=== PATIENT | female | born 1960 | race Caucasian/White ===

== ENCOUNTER 2017-05-01 09:50 | Day surgery (SDC) | payer BC ==
[~2017-05-01 09:50] MED LIST: Ciprofloxacin/Dexamethasone 0.3-0.1% Otic Susp 7.5 ML Bottle ONE; EPINEPHrine 1:1000 1 MG/ML SDV ONE
[2017-05-01] MEDS ORDERED: Lactated Ringers 1,000 ML IV SCH (10:30)
[2017-05-01] MEDS ORDERED: Ondansetron 4 MG/2 ML SDV ONE (11:14)
[2017-05-01] MEDS ORDERED: Propofol 200 MG/20 ML SDV ONE (11:14)
[2017-05-01] MEDS ORDERED: fentaNYL 100 MCG/2 ML SDV ONE (11:14)
[2017-05-01] MEDS ORDERED: Midazolam 1 MG/ML 2 ML SDV ONE (11:14)
--- NOTE | 2017-05-01 11:58 | PCM.PREANE ---
Preanesthetic Assessment - Procedure Proposed Procedure: tympanostomy with tube - Anesthesia/Transfusion/Family Hx Anesthesia History: Prior Anesthesia Without Reaction Family History of Anesthesia Reaction: No Transfusion History: No Prior Transfusion(s) Intubation History: Unknown - Review of Systems General: No Symptoms, Other (s/p bariatric surgery) Pulmonary: No Symptoms Cardiovascular: No Symptoms Gastrointestinal: No symptoms Neurological: Other (s/p spine surgery, lumbar) Other: Reports: None - Physical Assessment NPO Status Date: 04/30/17 NPO Status Time: 21:00 O2 Sat by Pulse Oximetry: 98 Respiratory Rate: 16 Vital Signs: Last Vital Signs Temp 99.0 F 05/01/17 10:00 Pulse 60 05/01/17 10:00 Resp 16 05/01/17 10:00 BP 140/100 H 05/01/17 10:00 Pulse Ox 98 05/01/17 10:00 Height: 5 ft 5 in Weight: 155 lb ASA Class: 3 Mental Status: Alert & Oriented x3 Airway Class: Mallampati = 1 Dentition: Reports: Normal Dentition Thyro-Mental Finger Breadths: 3 Mouth Opening Finger Breadths: 3 ROM/Head Extension: Full Lungs: Clear to auscultation, Normal respiratory effort Cardiovascular: Regular Rate, Regular Rhythm, No Murmurs Other: at bedside - Allergies Allergies/Adverse Reactions: Allergies Allergy/AdvReac Type Severity Reaction Status Date / Time No Known Allergies Allergy Verified 04/29/17 12:22 - Blood Blood Available: No Product(s) Available: None - Anesthesia Plan Pre-Op Medication Ordered: None - Acknowledgements Anesthesia Type Planned: General Anesthesia (LMA vs OET) Pt an Appropriate Candidate for the Planned Anesthesia: Yes Alternatives and Risks of Anesthesia Discussed w Pt/Guardian: Yes Pt/Guardian Understands and Agrees with Anesthesia Plan: Yes PreAnesthesia Questionnaire HEENT History: Reports: None Cardiovascular History: Reports: None Respiratory History: Reports: None Gastrointestinal History: Reports: Hiatal Hernia Other Gastrointestinal History: corrected with gastric bypass surgery Genitourinary History: Reports: None 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 Musculoskeletal History: Reports: Arthritis Other Musculoskeletal History: hx of fx left shoulder Neurological History: Reports: Concussion Psychiatric History: Reports: None Endocrine/Metabolic History: Reports: None Hematologic History: Reports: None Immunologic History: Reports: None Oncologic (Cancer) History: Reports: None Dermatologic History: Reports: None - Infectious Disease History Infectious Disease History: Reports: Herpes, Influenza - Past Surgical History Head Surgeries/Procedures: Reports: None HEENT Surgical History: Reports: LASIK Cardiovascular Surgical History: Reports: None Respiratory Surgical History: Reports: None GI Surgical History: Reports: Bariatric Procedure Female Surgical History: Reports: Hysterectomy Endocrine Surgical History: Reports: None Neurological Surgical History: Reports: Laminectomy, Spinal Fusion Other Neurological Surgeries/Procedures: 4 procedures at L5, last one was fusion Musculoskeletal Surgical History: Reports: Knee Replacement Other Musculoskeletal Surgeries/Procedures:: 4 back surg, 4 bilat knee surg ( total of 9) Oncologic Surgical History: Reports: None Dermatological Surgical History: Reports: None - SUBSTANCE USE Smoking Status *Q: Never Smoker Tobacco Use Within Last Twelve Months: Cigarettes Second Hand Smoke Exposure: No Days Per Week of Alcohol Use: 4 Number of Drinks Per Day: 1 Total Drinks Per Week: 4 Recreational Drug Use History: No - HOME MEDS Home Medications: Home Meds . [No Known Home Meds] 04/29/17 [History] - CURRENT (IN HOUSE) MEDS Current Meds: Current Medications Lactated Ringer's (Ringers, Lactated) 1,000 mls @ 125 mls/hr IV ASDIRECTED ODILON Last Admin: 05/01/17 10:15 Dose: 125 mls/hr Discontinued Medications Ciprofloxacin/Dexamethasone (Ciprodex Otic Susp) Confirm Administered Dose 7.5 ml .ROUTE .STK-MED ONE Stop: 05/01/17 07:30 Epinephrine HCl (Adrenalin 1:1000) Confirm Administered Dose 2 mg .ROUTE .STK- MED ONE Stop: 05/01/17 07:30 Fentanyl (Sublimaze) Confirm Administered Dose 100 mcg .ROUTE .STK-MED ONE Stop: 05/01/17 11:15 Midazolam HCl (Versed 1 Mg/Ml) Confirm Administered Dose 2 mg .ROUTE .STK-MED ONE Stop: 05/01/17 11:15 Ondansetron HCl (Zofran) Confirm Administered Dose 4 mg .ROUTE .STK-MED ONE Stop: 05/01/17 11:15 Propofol (Diprivan 20 Ml) Confirm Administered Dose 200 mg .ROUTE .STK-MED ONE Stop: 05/01/17 11:15
--- NOTE | 2017-05-01 12:15 | PCM.HPR ---
H & P Addendum review - H & P Addendum Review Date of Original H & P: 04/19/17 Date Reviewed: 05/01/17 Time Reviewed: 11:55 Patient was examined: Changes (Ptient feels that the ear pressure has been better over the past 2 days; on otoscopy - the ME seems to be clearing with minimal fluid; I discussed that if ontra operatively the middle ear is dry - will not place a tympnanostomy tube; she agreed)
[2017-05-01] MEDS ORDERED: Ketorolac 30 MG/ML SDV ONE (12:36)
[2017-05-01 13:37] VITALS: BP 134/82
--- NOTE | 2017-05-01 14:11 | PCM48HPAN ---
Post Anesthesia Note - EVALUATION WITHIN 48HRS OF ANESTHETIC Vital Signs in Normal Range: Yes Patient Participated in Evaluation: Yes Respiratory Function Stable: Yes Airway Patent: Yes Cardiovascular Function Stable: Yes Hydration Status Stable: Yes Pain Control Satisfactory: Yes Nausea and Vomiting Control Satisfactory: Yes Mental Status Recovered: Yes
--- NOTE | 2017-05-01 14:11 | PCM.POSTAN ---
POST ANESTHESIA ASSESSMENT - MENTAL STATUS Mental Status: alert, oriented - RESPIRATORY Respiratory Status: respiratory rate WNL, airway patent, O2 saturation stable - CARDIOVASCULAR CV Status: pulse rate WNL, blood pressure stable - GASTROINTESTINAL GI Status: no symptoms - POST OP HYDRATION Hydration Status: adequate & stable
--- NOTE | 2017-05-01 16:11 | PCM.OPNOTE ---
- General Post-Op/Procedure Note Condition: Good Free Text/Narrative:: Intake & Output 05/01/17 05/01/17 05/01/17 06:59 14:59 22:59 Intake Total 1900 Balance 1900 Diagnosis: Right otitis media with effusion, Right mixed hearing loss Procedure: Right Myringotomy with Tympanostomy tube Surgeon : Eli Reid MD Anesthesia: GA Anesthesiologist: Dr Ely Date of procedure:05/01/2017 Indications : She presented to my office with a history of right sided ear ache and hearing loss over 2-3 days to almost a complete loss of hearing. When seen by me - she had Right middle ear effusion ; office nasopharyngoscopy was normal. She underwent an MRI of IAC and skull base - no mass lesion in brain / skull base except fluid in middle ear and possible granulations in the mastoid. She was very nervous and stressed about the hearing loss. An audiogram revealed a severe mixed hearing loss on the right side with predominantly a conductive element. Various management options were discussed with her - she was very keen on undergoing a tympanostomy tube to relieve the conductive element and was listed for the procedure today. Findings : Minimal serous fluid in the middle ear Operation Details: An informed consent for the procedure was obtained. A time out was performed and the patient was brought back to the operating room and laid supine on the operating room table. Anesthesia was administered with a laryngeal mask airway. The right ear was addressed. Cerumen was cleared from the external auditory canal. An anterior inferior myringotomy incision was made in the pars tensa. Findings are as described above. An Cifuentes tympanostomy tube was placed with an alligator forceps. Ciprodex ear drops were instilled. A cotton wool wall was placed in the milad. This concluded the procedure and the patient was handed over to anestheisia for recovery. Specimens: none IV fluids: 600 ml Blood products: nil Disposition: PACU for recovery Follow up: In 1 week.
== END 2017-05-01 13:52 | disposition home or self-care (01) ==
LOC: MW.SDS 09:50
PROVIDERS: ATTEND Otolaryngology
PROC: 099500Z Drainage of Right Middle Ear with Drainage Device, Open Approach (ICD-10-PCS; principal; 2017-05-01)
DX: H65.91 Unspecified nonsuppurative otitis media, right ear (principal); H90.71 Mixed conductive and sensorineural hearing loss, unilateral, right ear, with unrestricted hearing on the contralateral side; M19.90 Unspecified osteoarthritis, unspecified site; Z90.710 Acquired absence of both cervix and uterus; Z90.79 Acquired absence of other genital organ(s); Z98.890 Other specified postprocedural states; Z96.659 Presence of unspecified artificial knee joint; Z98.1 Arthrodesis status
CPT/HCPCS: 69436; A9270; J0171; J1885; J2250; J2405; J3010; J7120; 00126; J2704

== ENCOUNTER 2017-05-21 12:08 | Emergency (ER) | payer BC ==
--- NOTE | 2017-05-21 12:41 | EDM.PDOC ---
ED HPI GENERAL MEDICAL PROBLEM - General Chief Complaint: ENT Problem Stated Complaint: EAR PAIN Time Seen by Provider: 05/21/17 12:12 Source of Information: Reports: Patient History Limitations: Reports: No Limitations - History of Present Illness INITIAL COMMENTS - FREE TEXT/NARRATIVE: The patient presents reporting right ear pressure and pain. On May 01, 2017 she had a PE tube placed by Dr. Reid for what sounds like a chronic serous otitis media. She had to have the tube irrigated once due to obstruction. She had a CT of the head which was negative for mastoiditis. She had sinus endoscopy which was clear. She had a dental exam 1 month ago without reported problems. She states that she had drainage from the right ear for a number of days after the tympanostomy but subsequently she has had no drainage. She did have a massage therapist do some release procedures as well. She talked to Dr. Reid a couple of days ago by phone and was told to take Tylenol or Motrin but the patient states they do not palliate the pressure pain. She denies tinnitus , headache, nosebleeds, visual problems. right ear Pain Score (Numeric/FACES): 6 - Related Data Allergies Allergy/AdvReac Type Severity Reaction Status Date / Time No Known Allergies Allergy Verified 05/21/17 12:10 Home Meds: Home Meds Prednisone [IMW: predniSONE] 40 mg PO WITHBREAKFAST #10 tab 05/21/17 [Rx] Past Medical History - Past Health History Medical/Surgical History: Denies Medical/Surgical History HEENT History: Reports: None Cardiovascular History: Reports: None Respiratory History: Reports: None Gastrointestinal History: Reports: Hiatal Hernia Other Gastrointestinal History: corrected with gastric bypass surgery Genitourinary History: Reports: None 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 Musculoskeletal History: Reports: Arthritis, Back Pain, Chronic, Fracture Other Musculoskeletal History: hx of fx left shoulder Neurological History: Reports: Concussion Psychiatric History: Reports: None Endocrine/Metabolic History: Reports: None Hematologic History: Reports: None Immunologic History: Reports: None Oncologic (Cancer) History: Reports: None Dermatologic History: Reports: None - Infectious Disease History Infectious Disease History: Reports: Herpes, Influenza - Past Surgical History Head Surgeries/Procedures: Reports: None HEENT Surgical History: Reports: LASIK, Myringotomy w Tube(s) Cardiovascular Surgical History: Reports: None Respiratory Surgical History: Reports: None GI Surgical History: Reports: Bariatric Procedure Female Surgical History: Reports: Breast Reduction, Hysterectomy, Oophorectomy Endocrine Surgical History: Reports: None Neurological Surgical History: Reports: Laminectomy, Spinal Fusion Other Neurological Surgeries/Procedures: 4 procedures at L5, last one was fusion Musculoskeletal Surgical History: Reports: Arthroscopic Knee, Knee Replacement Other Musculoskeletal Surgeries/Procedures:: 4 arthroscopies on each knee due to ACL, left TKA Oncologic Surgical History: Reports: None Dermatological Surgical History: Reports: None Social & Family History - Family History Family Medical History: Noncontributory - Tobacco Use Smoking Status *Q: Never Smoker Used Tobacco, but Quit: Yes Month Tobacco Last Used: 20 yrs Second Hand Smoke Exposure: No - Caffeine Use Caffeine Use: Reports: Tea - Alcohol Use Days Per Week of Alcohol Use: 4 Number of Drinks Per Day: 1 Total Drinks Per Week: 4 - Recreational Drug Use Recreational Drug Use: No Drug Use in Last 12 Months: No ED ROS ENT - Review of Systems Review Of Systems: ROS reveals no pertinent complaints other than HPI. ED EXAM, ENT - Physical Exam Exam: See Below Exam Limited By: No Limitations General Appearance: Alert, Mild Distress (due to pain) Ears: Normal External Exam, Normal TMs (left), Other (PE tube in place in right TM without obvious obstruction. TM without erythma or bulge. Canal dry) Nose: Normal Inspection Mouth/Throat: Normal Inspection, Normal Teeth (in good repair) Head: Atraumatic, Normocephalic Neck: Normal Inspection, Other (no swelling or tenderness over the mastoid). No : Lymphadenopathy (L), Lymphadenopathy (R) Respiratory/Chest: No Respiratory Distress, Lungs Clear, Normal Breath Sounds Cardiovascular: Normal Peripheral Pulses, Regular Rate, Rhythm, No Murmur GI/Abdominal: Soft Extremities: Normal Inspection Neurological: Alert, Oriented Psychiatric: Normal Affect, Normal Mood Skin: Warm, Dry, Intact, Normal Color, No Rash Lymphatic: No Adenopathy Course - Vital Signs Last Recorded V/S: Last Vital Signs Temp 36.6 C 05/21/17 12:10 Pulse 99 05/21/17 12:10 Resp 16 05/21/17 12:10 BP 160/95 H 05/21/17 12:10 Pulse Ox 99 05/21/17 12:10 - Re-Assessments/Exams Free Text/Narrative Re-Assessment/Exam: 05/21/17 12:[address] Eli Reid, ENT. Dr. Reid who is aware of the patient's current complaints. She will call the patient and move up her appointment. In the meantime we will try a short course of oral prednisone. Departure - Departure Time of Disposition: 12:45 Disposition: Home, Self-Care 01 Condition: Good Clinical Impression: Otalgia of right ear - Discharge Information Referrals: Eli Reid MD [Physician] - Forms: ED Department Discharge Additional Instructions: 1. Dr. Reid's office will call to move up your appointment previously scheduled for next week 2. Prednisone daily for 5 days 3. Tramadol every 4 hours as needed for pain.
== END 2017-05-21 13:00 | disposition home or self-care (01) ==
LOC: MW.ED 12:08
CPT/HCPCS: 99282; 99283

== ENCOUNTER 2017-07-07 06:34 | Emergency (ER) | payer BC ==
[2017-07-07] MEDS ORDERED: Sodium Chloride 0.9% 10 ML Syringe FLUSH PRN (06:54)
[2017-07-07] MEDS ORDERED: Sodium Chloride 0.9% 2.5 ML Syringe FLUSH PRN (06:54)
[2017-07-07] MEDS ORDERED: Ondansetron 4 MG/2 ML SDV IVPUSH ONE (07:34)
[2017-07-07] MEDS ORDERED: Atropine/Diphenoxylate 0.025-2.5 MG Tab PO ONE (07:37)
--- NOTE | 2017-07-07 07:44 | EDM.PDOC ---
ED HPI GENERAL MEDICAL PROBLEM - General Chief Complaint: Gastrointestinal Problem Stated Complaint: STOMACH PAINS Time Seen by Provider: 07/07/17 09:30 Source of Information: Reports: Patient - History of Present Illness INITIAL COMMENTS - FREE TEXT/NARRATIVE: HISTORY AND PHYSICAL: History of present illness: Patient presents with abdominal cramps and diarrhea after eating dinner last night she had blackened fish, since midnight she states she has had up to 20 loose stools. She states this has happened in the past about a year ago requiring fluid fluid bolus and an antispasmodic which relieved her symptoms. Essentially today she is having abdominal cramping, no fever vomiting chills sweats no chest pain shortness breath headache dizziness palpitation no urine symptoms Patient has not had a loose stool since being here in the emergency room hence no stool for culture or testing History of gastric bypass Review of systems: As per history of present illness and below otherwise all systems reviewed and negative. Past medical history: As per history of present illness and as reviewed below otherwise noncontributory. Surgical history: As per history of present illness and as reviewed below otherwise noncontributory. Social history: No reported history of drug or alcohol abuse. Family history: As per history of present illness and as reviewed below otherwise noncontributory. Physical exam: HEENT: Atraumatic, normocephalic, pupils reactive, negative for conjunctival pallor or scleral icterus, mucous membranes moist, throat clear, neck supple, nontender, trachea midline. Lungs: Clear to auscultation, breath sounds equal bilaterally, chest nontender. Heart: S1S2, regular, negative for clicks, rubs, or JVD. Abdomen: Soft, nondistended, nontender. Negative for masses or hepatosplenomegaly. Negative for costovertebral tenderness. Pelvis: Stable nontender. Genitourinary: Deferred. Rectal: Deferred. Extremities: Atraumatic, negative for cords or calf pain. Neurovascular unremarkable. Neuro: Awake, alert, oriented. Cranial nerves II through XII unremarkable. Cerebellum unremarkable. Motor and sensory unremarkable throughout. Exam nonfocal. Diagnostics: []Abdomen flat and upright No stool sample for testing Therapeutics: []Normal saline bolus Zofran 8 mg IV Lomotil 1 dose Impression: []Diarrhea/dumping syndrome Definitive disposition and diagnosis as appropriate pending reevaluation and review of above. abdomen Pain Score (Numeric/FACES): 7 - Related Data Allergies Allergy/AdvReac Type Severity Reaction Status Date / Time No Known Allergies Allergy Verified 07/07/17 06:37 Home Meds: Home Meds Prednisone [IMW: predniSONE] 40 mg PO WITHBREAKFAST #10 tab 05/21/17 [Rx] Past Medical History - Past Health History Medical/Surgical History: Denies Medical/Surgical History HEENT History: Reports: None Cardiovascular History: Reports: None Respiratory History: Reports: None Gastrointestinal History: Reports: Hiatal Hernia, Other (See Below) Other Gastrointestinal History: corrected with gastric bypass surgery; diarrhea Genitourinary History: Reports: None 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 Musculoskeletal History: Reports: Arthritis, Back Pain, Chronic, Fracture Other Musculoskeletal History: hx of fx left shoulder Neurological History: Reports: Concussion Psychiatric History: Reports: None Endocrine/Metabolic History: Reports: None Hematologic History: Reports: None Immunologic History: Reports: None Oncologic (Cancer) History: Reports: None Dermatologic History: Reports: None - Infectious Disease History Infectious Disease History: Reports: Herpes, Influenza - Past Surgical History Head Surgeries/Procedures: Reports: None HEENT Surgical History: Reports: LASIK, Myringotomy w Tube(s) Cardiovascular Surgical History: Reports: None Respiratory Surgical History: Reports: None GI Surgical History: Reports: Bariatric Procedure Female Surgical History: Reports: Breast Reduction, Hysterectomy, Oophorectomy Endocrine Surgical History: Reports: None Neurological Surgical History: Reports: Laminectomy, Spinal Fusion Other Neurological Surgeries/Procedures: 4 procedures at L5, last one was fusion Musculoskeletal Surgical History: Reports: Arthroscopic Knee, Knee Replacement Other Musculoskeletal Surgeries/Procedures:: 4 arthroscopies on each knee due to ACL, left TKA Oncologic Surgical History: Reports: None Dermatological Surgical History: Reports: None Social & Family History - Family History Family Medical History: Noncontributory - Tobacco Use Smoking Status *Q: Never Smoker Used Tobacco, but Quit: Yes Month Tobacco Last Used: 20 yrs Second Hand Smoke Exposure: No - Caffeine Use Caffeine Use: Reports: Tea - Alcohol Use Days Per Week of Alcohol Use: 4 Number of Drinks Per Day: 1 Total Drinks Per Week: 4 - Recreational Drug Use Recreational Drug Use: No Drug Use in Last 12 Months: No ED ROS GENERAL - Review of Systems Review Of Systems: ROS reveals no pertinent complaints other than HPI. ED EXAM, GENERAL - Physical Exam Exam: See Below Course - Vital Signs Last Recorded V/S: Last Vital Signs Temp 36.1 C 07/07/17 07:30 Pulse 70 07/07/17 07:30 Resp 18 07/07/17 07:30 BP 139/85 07/07/17 07:30 Pulse Ox 97 07/07/17 07:30 - Orders/Labs/Meds Orders: Active Orders 24 hr Category Date Time Status Abdomen 2V AP Flat Upright [CR] Stat Exams 07/07/17 07:37 Taken Sodium Chloride 0.9% [Saline Flush] Med 07/07/17 06:54 Active 10 ml FLUSH ASDIRECTED PRN Sodium Chloride 0.9% [Saline Flush] Med 07/07/17 06:54 Active 2.5 ml FLUSH ASDIRECTED PRN Saline Lock Insert [OM.PC] Stat Oth 07/07/17 06:54 Ordered Medication Orders Sodium Chloride (Saline Flush) 10 ml FLUSH ASDIRECTED PRN PRN Reason: Keep Vein Open Last Admin: 07/07/17 07:59 Dose: 10 ml Sodium Chloride (Saline Flush) 2.5 ml FLUSH ASDIRECTED PRN PRN Reason: Keep Vein Open Last Admin: 07/07/17 07:59 Dose: 2.5 ml Labs: Laboratory Tests 07/07/17 07/07/17 07/07/17 Range/Units 06:45 06:45 06:45 WBC 7.31 (4.0-11.0) K/uL RBC 4.76 (4.30-5.90) M/uL Hgb 12.9 (12.0-16.0) g/dL Hct 39.8 (36.0-46.0) % MCV 83.6 (80.0-98.0) fL MCH 27.1 (27.0-32.0) pg MCHC 32.4 (31.0-37.0) g/dL RDW Std Deviation 46.0 (28.0-62.0) fl RDW Coeff of Maximiliano 15 (11.0-15.0) % Plt Count 307 (150-400) K/uL MPV 9.70 (7.40-12.00) fL Neut % (Auto) 68.4 (48.0-80.0) % Lymph % (Auto) 19.3 (16.0-40.0) % [place] % (Auto) 10.0 (0.0-15.0) % Eos % (Auto) 1.8 (0.0-7.0) % Baso % (Auto) 0.5 (0.0-1.5) % Neut # (Auto) 5.0 (1.4-5.7) K/uL Lymph # (Auto) 1.4 (0.6-2.4) K/uL [place] # (Auto) 0.7 (0.0-0.8) K/uL Eos # (Auto) 0.1 (0.0-0.7) K/uL Baso # (Auto) 0.0 (0.0-0.1) K/uL Nucleated RBC % 0.0 /100WBC Nucleated RBCs # 0 K/uL Sodium 141 (136-146) mmol/L Potassium 4.1 (3.5-5.1) mmol/L Chloride 111 H (98-110) mmol/L Carbon Dioxide 20 L (21-31) mmol/L BUN 19 (6.0-23.0) mg/dL Creatinine 1.0 (0.6-1.5) mg/dL Est Cr Clr Drug Dosing 55.18 mL/min Estimated GFR (MDRD) 56.9 ml/min Glucose 91 (60-110) mg/dL Calcium 9.5 (8.8-10.8) mg/dL Total Bilirubin 0.7 (0.1-1.5) mg/dL AST 32 (5-40) IU/L ALT 21 (8-54) IU/L Alkaline Phosphatase 97 (40-150) Total Protein 7.6 (6.0-8.0) g/dL Albumin 4.3 (3.5-5.0) g/dL Globulin 3.3 (2.0-3.5) g/dL Albumin/Globulin Ratio 1.3 (1.3-2.8) Amylase 101 H (10-90) U/L Lipase 29 (7-80) U/L Meds: Medications Generic Name Dose Route Start Last Admin Trade Name Freq PRN Reason Stop Dose Admin Sodium Chloride 10 ml 07/07/17 06:54 07/07/17 07:59 Saline Flush FLUSH 10 ml ASDIRECTED PRN Administration Keep Vein Open Sodium Chloride 2.5 ml 08/27/17 06:54 07/07/17 07:59 Saline Flush FLUSH 2.5 ml ASDIRECTED PRN Administration Keep Vein Open Discontinued Medications Generic Name Dose Route Start Last Admin Trade Name Silvano PRN Reason Stop Dose Admin Diphenoxylate HCl/Atropine 1 tab 07/07/17 07:37 07/07/17 07:43 Lomotil 0.025-2.5 Mg PO 07/07/17 07:38 1 tab ONETIME ONE Administration Sodium Chloride 1,000 mls @ 999 mls/hr 07/07/17 07:47 07/07/17 07:59 Normal Saline IV 07/07/17 08:47 999 mls/hr STAT ONE Administration Ondansetron HCl 8 mg 07/07/17 07:34 07/07/17 07:43 Zofran IVPUSH 07/07/17 07:35 8 mg ONETIME ONE Administration Departure - Departure Time of Disposition: 09:29 Disposition: Home, Self-Care 01 Condition: Good Clinical Impression: Diarrhea - Discharge Information Referrals: Taylor Parry DO [Primary Care Provider] - Forms: ED Department Discharge Additional Instructions: Clear liquids as discussed Bread/bananas advance diet slowly Return if symptoms persist or worsen Follow-up with primary care in 2 weeks The following information is given to patients seen in the emergency department who are being discharged to home. This information is to outline your options for follow-up care. We provide all patients seen in our emergency department with a follow-up referral. The need for follow-up, as well as the timing and circumstances, are variable depending upon the specifics of your emergency department visit. If you don't have a primary care physician on staff, we will provide you with a referral. We always advise you to contact your personal physician following an emergency department visit to inform them of the circumstance of the visit and for follow-up with them and/or the need for any referrals to a consulting specialist. The emergency department will also refer you to a specialist when appropriate. This referral assures that you have the opportunity for follow-up care with a specialist. All of these measure are taken in an effort to provide you with optimal care, which includes your follow-up. Under all circumstances we always encourage you to contact your private physician who remains a resource for coordinating your care. When calling for follow-up care, please make the office aware that this follow-up is from your recent emergency room visit. If for any reason you are refused follow-up, please contact the [facility] emergency department at and asked to speak to the emergency department charge nurse. - My Orders Last 24 Hours: My Active Orders 07/07/17 07:37 Abdomen 2V AP Flat Upright [CR] Stat - Assessment/Plan Last 24 Hours: My Active Orders 07/07/17 07:37 Abdomen 2V AP Flat Upright [CR] Stat
[2017-07-07] MEDS ORDERED: Sodium Chloride 0.9% 1,000 ML IV ONE (07:47)
[2017-07-07 09:46] VITALS: BP 129/77
--- NOTE | 2017-07-08 13:19 | CR ---
EXAM DATE: 07/07/17 PATIENT'S AGE: 56 Patient: JULISA BOLAÑOS Facility: [place], [place] Site . Site : 1960 Study: XRay Abdomen [id number]/27/2017 8:14:42 AM Ordering Physician: Doctor Nuñez Final Report: HISTORY: Abdominal pain. Technique: Supine and upright views the abdomen. Comparison: Radiographs 04/13/2016. Findings: No free intraperitoneal gas. There is gas in nondilated small bowel and colon. Surgical staple lines in the left upper quadrant. Surgical clips in the left mid abdomen. Post lower lumbar fusion. No pathologic calcifications. Impression: No acute findings. No dilated bowel or free intraperitoneal gas. Dictated by Nikita Newman MD @ Jul 07 2017 8:20AM (Electronic Signature) Report Signed by Proxy. MARY JO
== END 2017-07-07 09:43 | disposition home or self-care (01) ==
LOC: MW.ED 06:34
DX: K91.1 Postgastric surgery syndromes (principal); M19.90 Unspecified osteoarthritis, unspecified site; Z96.22 Myringotomy tube(s) status; Z90.710 Acquired absence of both cervix and uterus
CPT/HCPCS: 74020; 80053; 82150; 83690; 85025; 96361; 96374; 99284; A9270; J2405; J7040; 99282

== ENCOUNTER 2017-10-02 08:21 | Day surgery (SDC) | payer BC ==
[~2017-10-02 08:21] MED LIST changes: -EPINEPHrine 1:1000 1 MG/ML SDV ONE; +Lactated Ringers 1,000 ML IV SCH; +Sodium Chloride 0.9% 10 ML Syringe FLUSH PRN; +Sodium Chloride 0.9% 2.5 ML Syringe FLUSH PRN
--- NOTE | 2017-10-02 09:06 | PCM.PREANE ---
Preanesthetic Assessment - Anesthesia/Transfusion/Family Hx Anesthesia History: Prior Anesthesia Without Reaction Transfusion History: No Prior Transfusion(s) Intubation History: Unknown - Review of Systems General: Other (2 cold sores under nose that pt states are healing) Pulmonary: No Symptoms Cardiovascular: No Symptoms Gastrointestinal: No Symptoms Neurological: No Symptoms Other: Reports: None - Physical Assessment NPO Status Date: 10/01/17 NPO Status Time: 20:00 O2 Sat by Pulse Oximetry: 98 Respiratory Rate: 16 Vital Signs: Last Vital Signs Temp 97.5 F 10/02/17 08:48 Pulse 76 10/02/17 08:48 Resp 16 10/02/17 08:48 BP 120/83 10/02/17 08:48 Pulse Ox 98 10/02/17 08:48 Height: 5 ft 4 in Weight: 153 lb ASA Class: 2 Mental Status: Alert & Oriented x3 Airway Class: Mallampati = 1 Dentition: Reports: Normal Dentition, [place](s) Thyro-Mental Finger Breadths: 3 Mouth Opening Finger Breadths: 3 ROM/Head Extension: Full Lungs: Clear to Auscultation, Normal Respiratory Effort Cardiovascular: Regular Rate, Regular Rhythm - Allergies Allergies/Adverse Reactions: Allergies Allergy/AdvReac Type Severity Reaction Status Date / Time No Known Allergies Allergy Verified 09/30/17 10:32 - Blood Blood Available: No Product(s) Available: None - Anesthesia Plan Free Text/Narrative:: GETA with LMA - Acknowledgements Anesthesia Type Planned: General Anesthesia Pt an Appropriate Candidate for the Planned Anesthesia: Yes Alternatives and Risks of Anesthesia Discussed w Pt/Guardian: Yes Pt/Guardian Understands and Agrees with Anesthesia Plan: Yes PreAnesthesia Questionnaire - Past Health History Medical/Surgical History: Denies Medical/Surgical History HEENT History: Reports: Hard of Hearing Other HEENT History: has hearing aide right ear Cardiovascular History: Reports: None Respiratory History: Reports: None Gastrointestinal History: Reports: Hiatal Hernia, Other (See Below) Other Gastrointestinal History: corrected with gastric bypass surgery; diarrhea Genitourinary History: Reports: None [employer] History: Reports: None Musculoskeletal History: Reports: Arthritis, Back Pain, Chronic, Fracture Other Musculoskeletal History: hx of fx left shoulder Neurological History: Reports: Concussion Psychiatric History: Reports: Anxiety Endocrine/Metabolic History: Reports: None Hematologic History: Reports: None Immunologic History: Reports: None Oncologic (Cancer) History: Reports: None Dermatologic History: Reports: None - Infectious Disease History Infectious Disease History: Reports: Herpes, Influenza - Past Surgical History Head Surgeries/Procedures: Reports: None HEENT Surgical History: Reports: LASIK, Myringotomy w Tube(s) Cardiovascular Surgical History: Reports: None Respiratory Surgical History: Reports: None GI Surgical History: Reports: Bariatric Procedure Female Surgical History: Reports: Breast Reduction, Hysterectomy, Oophorectomy Endocrine Surgical History: Reports: None Neurological Surgical History: Reports: Lumbar Spine Other Neurological Surgeries/Procedures: lower back surgery x5 Musculoskeletal Surgical History: Reports: Arthroscopic Procedure, Knee Replacement, Other (See Below) Other Musculoskeletal Surgeries/Procedures:: bilateral knee arthroscopies, bilateral ACL repair, left TKA Oncologic Surgical History: Reports: None Dermatological Surgical History: Reports: None - SUBSTANCE USE Smoking Status *Q: Never Smoker Tobacco Use Within Last Twelve Months: No Second Hand Smoke Exposure: No Days Per Week of Alcohol Use: 4 Number of Drinks Per Day: 1 Total Drinks Per Week: 4 Recreational Drug Use History: No - HOME MEDS Home Medications: Home Meds ClonazePAM [KlonoPIN] 0.5 mg PO ASDIRECTED PRN 09/30/17 [History] oxyCODONE HCl/Acetaminophen [Percocet 10-325 mg Tablet] 1 tab PO ASDIRECTED PRN 09/30/17 [History] - CURRENT (IN HOUSE) MEDS Current Meds: Current Medications Lactated Ringer's (Ringers, Lactated) 1,000 mls @ 125 mls/hr IV ASDIRECTED [facility] Last Admin: 10/02/17 08:56 Dose: 125 mls/hr Sodium Chloride (Saline Flush) 10 ml FLUSH ASDIRECTED PRN PRN Reason: Keep Vein Open Sodium Chloride (Saline Flush) 2.5 ml FLUSH ASDIRECTED PRN PRN Reason: Keep Vein Open Discontinued Medications Ciprofloxacin/Dexamethasone (Ciprodex Otic Susp) Confirm Administered Dose 7.5 ml .ROUTE .STK-MED ONE Stop: 10/02/17 07:49
[2017-10-02] MEDS ORDERED: Ondansetron 4 MG/2 ML SDV ONE (09:18)
[2017-10-02] MEDS ORDERED: Midazolam 1 MG/ML 2 ML SDV ONE (09:18)
[2017-10-02] MEDS ORDERED: Lidocaine 2% 5 ML SDV ONE (09:18)
[2017-10-02] MEDS ORDERED: Propofol 200 MG/20 ML SDV ONE (09:18)
[2017-10-02] MEDS ORDERED: fentaNYL 250 MCG/5 ML SDV ONE (09:18)
--- NOTE | 2017-10-02 10:26 | PCM.HPR ---
H & P Addendum review - H & P Addendum Review Date of Original H & P: 09/13/17 Date Reviewed: 10/02/17 Time Reviewed: 10:00 Patient was Examined: No Changes
[2017-10-02] MEDS ORDERED: ePHEDrine 50 MG/ML SDV ONE (10:27)
[2017-10-02] MEDS ORDERED: Gelatin Sponge,Absorbable 12-7 mm Sponge TOP ONE (10:28)
[2017-10-02] MEDS ORDERED: fentaNYL 100 MCG/2 ML SDV ONE (11:08)
[2017-10-02] MEDS: fentaNYL 100 MCG/2 ML SDV IVPUSH PRN ×2 (11:13→11:18)
--- NOTE | 2017-10-02 11:18 | PCM.POSTAN ---
POST ANESTHESIA ASSESSMENT - MENTAL STATUS Mental Status: Alert, Oriented - VITAL SIGNS Pulse Rate: 85 SaO2: 96 Resp Rate: 13 Blood Pressure: 120/70 - RESPIRATORY Respiratory Status: Respiratory Rate WNL, Airway Patent, O2 Saturation Stable - CARDIOVASCULAR CV Status: Pulse Rate WNL, Blood Pressure Stable - GASTROINTESTINAL GI Status: No Symptoms - PAIN Pain Score: 2 (Well controlled after fentanyl) - POST OP HYDRATION Hydration Status: Adequate & Stable - OBSERVATIONS Free Text/Narrative:: Pt stable for discharge to phase II recovery.
[2017-10-02 12:02] VITALS: BP 122/80
--- NOTE | 2017-10-02 14:33 | PCM.OPNOTE ---
- General Post-Op/Procedure Note Date of Surgery/Procedure: 10/02/17 Operative Procedure(s): Removal of Right tympanostomy tube and paper patch myringoplasty. 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 Since her surgery she had complaining of feeling plugged and blocked in the right ear. At times she also complained of pulsing feeling. Her symptoms fluctuated over the past few months and now she presented again with being distressed by feeling blocked in her right ear. She denied any other otologic symptoms. She has been successfully using a right-sided hearing aid for the hearing loss. Owing to this continued right-sided otologic symptom a mutual decision was taken to remove the tympanostomy tube. She was consented for the procedure today. Procedure: An informed consent was obtained and patient was brought back to the operating room and laid supine on the operating table. Timeout was performed. General anesthesia was administered with a laryngeal mask airway. Right ear was examined under the microscope and the cerumen was cleared from the external auditory canal. There were surrounding crusts adjacent to tube which were removed with a sharp needle and an alligator forcep. There was minimal granulation tissue as above. The tympanostomy tube was gently teased out and removed. Edges of the perforation incuding the granulation were freshened with 4% trichloroacetic acid. A sterile cigarette paper patch was cut to size and placed over the tympanic membrane perforation resulting from removal of the tympanostomy tube. Ciprodex drops were instilled cotton was placed in the milad This concluded the procedure. The patient was turned over to anesthesia for recovery. Specimens: None Disposition: To PACU for recovery and home later Follow-up: In 1 week
== END 2017-10-02 12:14 | disposition home or self-care (01) ==
LOC: MW.SDS 08:21
PROVIDERS: ATTEND Otolaryngology
DX: Z45.82 Encounter for adjustment or removal of myringotomy device (stent) (tube) (principal); H90.41 Sensorineural hearing loss, unilateral, right ear, with unrestricted hearing on the contralateral side; F41.9 Anxiety disorder, unspecified; M19.90 Unspecified osteoarthritis, unspecified site; G89.29 Other chronic pain; M54.9 Dorsalgia, unspecified; Z79.899 Other long term (current) drug therapy; Z98.84 Bariatric surgery status; Z96.652 Presence of left artificial knee joint; Z90.710 Acquired absence of both cervix and uterus; Z98.890 Other specified postprocedural states; Z80.0 Family history of malignant neoplasm of digestive organs
CPT/HCPCS: 69610; A9270; J2250; J2405; J3010; J7120; 00126; 88300; J2704